=== PATIENT | female | born 1960 ===

== ENCOUNTER 2024-09-06 16:12 | Inpatient (IN) | payer MEDICAID, OTHER ==
[~2024-09-06] VITALS: Ht 165.1 cm; Wt 74.8 kg
[2024-09-06 21:49] LABS: PLATELET COUNT (AUTO) 337 K/uL (150-450); RED BLOOD CELL COUNT(AUTO) 3.02 MIL/uL (4.00-5.20); RED CELL DISTRIBUTION WIDTH 13.6 % (11.5-14.5); WHITE BLOOD COUNT (AUTO) 7.2 K/uL (4.5-11.0)
[2024-09-06 21:55] LABS: CALCIUM, TOTAL 8.1 mg/dL (8.8-10.5); CREATININE 1.68 mg/dL (0.60-1.30); GLOMERULAR FILTR. RATE CALC 31.0 mL/min (>60); GLUCOSE,RANDOM 95.0 mg/dL (70-110); SODIUM SERUM 141.0 mmol/L (136-145); UREA NITROGEN, BLOOD 39.0 mg/dL (7-18)
[2024-09-06 22:38] LABS: COVID AG,FIA SOURCE NASAL SWAB
[2024-09-06 22:41] LABS: APPEARANCE,URINE CLEAR (CLEAR); GLUCOSE, URINE (UA) 300-500 mg/dL (NEGATIVE); LEUKOCYTE ESTERASE ,URINE NEGATIVE (NEGATIVE); NITRATE,URINE NEGATIVE (NEGATIVE); OCCULT BLOOD,URINE NEGATIVE (NEGATIVE); PH,URINE DRUG SCREEN 6.5 (5.0-8.0); SPECIFIC GRAVITIY, URINE 1.017 (1.003-1.030)
[2024-09-06 22:49] LABS: ALCOHOL, URINE DRUG SCREEN NEGATIVE (NEGATIVE); AMPHET/METH SCREEN,URINE NEGATIVE (NEGATIVE); BARBITURATE SCREEN, URINE NEGATIVE (NEGATIVE); CANNABINOID SCREEN,URINE NEGATIVE (NEGATIVE); COCAINE SCREEN,URINE NEGATIVE (NEGATIVE); METHADONE SCREEN, URINE NEGATIVE (NEGATIVE)
[2024-09-06 22:51] LABS: SULFOSALICYLIC ACID,URINE 4+ (Negative)
[2024-09-06 22:54] LABS: SQUAMOUS EPITHELIAL CELL,UR Rare /LPF (None Seen)
[2024-09-06 22:56] LABS: SARS-COV2 (COVID) ANTIGEN,FIA Negative (Negative)
[2024-09-07] MEDS ORDERED: ZOLPIDEM TARTRATE 10 MG TABLET PO PRN (04:45)
[2024-09-07] MEDS: PERMETHRIN 5% 60 GM CREAM TP ONE (14:37)
[2024-09-07 17:27] VITALS: BP 135/74; PULSE 90; RESP 18; TEMP 97.8; O2SAT 97
[2024-09-07 20:00] VITALS: BP 128/81; PULSE 88; RESP 19; TEMP 98; O2SAT 98
[2024-09-08] MEDS ORDERED: PNEUMOCOCCAL VACCINE POLYVALENT 0.5 ML SYRINGE [PPSV23] IM. ONE (06:45)
[2024-09-08 09:38] VITALS: BP 142/75; PULSE 93; RESP 18; TEMP 97.5; O2SAT 100
[2024-09-08] MEDS ORDERED: ACETAMINOPHEN 325 MG TABLET PO PRN (09:45)
[2024-09-08] MEDS ORDERED: MAGNESIUM HYDROXIDE SUSPENSION 30 ML UDCUP PO PRN (09:45)
[2024-09-08] MEDS ORDERED: ALBUTEROL SULFATE HFA 90 MCG/PUFF 8 GM INHALER IH PRN (09:45)
[2024-09-08] MEDS ORDERED: LOPERAMIDE HCL 2 MG CAPSULE PO PRN (09:45)
[2024-09-08] MEDS ORDERED: PETROLATUM,WHITE 28 GM JELLY TP PRN (09:45)
[2024-09-08] MEDS ORDERED: BACITRACIN 28 GM OINTMENT TP PRN (09:45)
[2024-09-08] MEDS ORDERED: OMEPRAZOLE 20 MG CAPSULE PO PRN (09:45)
[2024-09-08] MEDS ORDERED: DOCUSATE SODIUM 100 MG CAPSULE PO PRN (09:45)
[2024-09-08] MEDS ORDERED: IBUPROFEN 600 MG TABLET PO PRN (09:45)
[2024-09-08] MEDS ORDERED: MAG HYDROX/ALUMINUM HYD/SIMETH ES 30 ML SUSPENSION UDCUP PO PRN (09:45)
[2024-09-08] MEDS ORDERED: ONDANSETRON 4 MG TABLET PO PRN (09:45)
[2024-09-08] MEDS ORDERED: BENZOCAINE/MENTHOL [CEPACOL] LOZENGE PO PRN (09:45)
[2024-09-08] MEDS: METOPROLOL TARTRATE 25 MG TABLET PO SCH (18:43)
[2024-09-08] MEDS: ATORVASTATIN CALCIUM 20 MG TABLET PO SCH (20:12)
[2024-09-08 21:41] VITALS: BP 145/76; PULSE 90; RESP 18; TEMP 98.1; O2SAT 97
[2024-09-09] MEDS: CALAMINE/ZINC OXIDE 177 ML LOTION TP SCH (09:44)
[2024-09-09] MEDS: ASPIRIN 81 MG DR TABLET PO SCH (09:44)
[2024-09-09] MEDS: MULTIVITAMINS WITH MINERALS, THERAPEUTIC TABLET PO SCH (09:44)
[2024-09-09 09:47] LABS: PLATELET COUNT (AUTO) 309 K/uL (150-450); RED BLOOD CELL COUNT(AUTO) 2.96 MIL/uL (4.00-5.20); RED CELL DISTRIBUTION WIDTH 13.9 % (11.5-14.5); WHITE BLOOD COUNT (AUTO) 13.0 K/uL (4.5-11.0)
[2024-09-09 10:14] LABS: ASPARTATE AMINOTRANSFERASE 23.0 U/L (15-37); CALCIUM, TOTAL 8.2 mg/dL (8.8-10.5); CHOL/HDL RATIO 2.6 (3.9-5.7); CREATININE 1.89 mg/dL (0.60-1.30); GLOMERULAR FILTR. RATE CALC 27.0 mL/min (>60); GLUCOSE,RANDOM 110.0 mg/dL (70-110); LDL CHOL (CALC.) 74.0 mg/dL (0-130); PHOSPHORUS 3.5 mg/dL (2.5-4.9); SODIUM SERUM 147.0 mmol/L (136-145); TOTAL PROTEIN, SERUM 5.2 g/dL (6.4-8.2); UREA NITROGEN, BLOOD 36.0 mg/dL (7-18)
[2024-09-09 10:21] LABS: % IRON SATURATION 18.7 % (22-44); IRON, SERUM 21.0 mcg/dL (50-175)
[2024-09-09 10:59] VITALS: BP 138/84; PULSE 102; RESP 17; TEMP 98.4; O2SAT 96
[2024-09-09 22:34] VITALS: BP 133/70; PULSE 92; RESP 17; TEMP 99; O2SAT 98
[2024-09-10 10:19] VITALS: BP 141/82; PULSE 100; RESP 18; TEMP 97.6; O2SAT 97
[2024-09-10 21:16] VITALS: BP 122/68; PULSE 79; RESP 18; TEMP 97.6; O2SAT 100
[2024-09-11 10:29] VITALS: BP 126/72; PULSE 87; RESP 18; TEMP 97.7; O2SAT 98
[2024-09-12] MEDS ORDERED: LEVO25TA9 PO (08:43)
[2024-09-12 11:12] VITALS: RESP 16
[2024-09-12 13:39] VITALS: BP 132/72; PULSE 98; RESP 20; TEMP 98.4; O2SAT 100
[2024-09-12 21:24] VITALS: BP 125/62; PULSE 76; RESP 19; TEMP 97.9; O2SAT 98
[2024-09-13] MEDS: LEVOTHYROXINE SODIUM 25 MCG TABLET PO SCH (07:10)
[2024-09-13 08:55] LABS: PLATELET COUNT (AUTO) 425 K/uL (150-450); RED BLOOD CELL COUNT(AUTO) 3.16 MIL/uL (4.00-5.20); RED CELL DISTRIBUTION WIDTH 14.2 % (11.5-14.5); WHITE BLOOD COUNT (AUTO) 10.1 K/uL (4.5-11.0)
[2024-09-13 09:18] LABS: CALCIUM, TOTAL 7.6 mg/dL (8.8-10.5); CREATININE 1.61 mg/dL (0.60-1.30); GLOMERULAR FILTR. RATE CALC 32.0 mL/min (>60); GLUCOSE,RANDOM 104.0 mg/dL (70-110); SODIUM SERUM 143.0 mmol/L (136-145); UREA NITROGEN, BLOOD 35.0 mg/dL (7-18)
[2024-09-13 10:27] LABS: BAND NEUTROPHILS % (MANUAL) 1 % (0-5); EOSINOPHILS % (MANUAL) 6 % (1-6); LYMPHOCYTES % (MANUAL) 20 % (22-44); MONOCYTES % (MANUAL) 1 % (2-9); RBC MORPHOLOGY COMMENT NORMAL RBC MORPH; SEGMENTED NEUTROPHILS % 72 % (40-70)
[2024-09-13 11:25] VITALS: BP 133/68; PULSE 82; RESP 16; TEMP 97.7; O2SAT 99
[2024-09-13 20:30] VITALS: BP 120/71; PULSE 81; RESP 18; TEMP 98.2; O2SAT 98
[2024-09-14] MEDS ORDERED: CALAMINE/ZINC OXIDE 177 ML LOTION TP PRN (00:45)
[2024-09-14 08:35] VITALS: BP 123/81; PULSE 85; RESP 17; TEMP 97.5; O2SAT 97
[2024-09-15] MEDS ORDERED: PERMETHRIN 5% 60 GM CREAM TP ONE (06:45)
== END 2024-09-14 19:00 | DRG 754 ==
LOC: EMS 16:12 → 3EI 09-07 17:01
PROVIDERS: ADMIT Psychiatry & Neurology Psychiatry; ATTEND Psychiatry & Neurology Psychiatry
DX: F32.9 Major depressive disorder, single episode, unspecified (principal); I69.351 Hemiplegia and hemiparesis following cerebral infarction affecting right dominant side; I12.9 Hypertensive chronic kidney disease with stage 1 through stage 4 chronic kidney disease, or unspecified chronic kidney disease; N18.30 Chronic kidney disease, stage 3 unspecified; R91.8 Other nonspecific abnormal finding of lung field; K21.9 Gastro-esophageal reflux disease without esophagitis; Z20.822 Contact with and (suspected) exposure to COVID-19; M54.2 Cervicalgia; G40.909 Epilepsy, unspecified, not intractable, without status epilepticus; F41.9 Anxiety disorder, unspecified; R32 Unspecified urinary incontinence; G47.00 Insomnia, unspecified; Z91.148 Patient's other noncompliance with medication regimen for other reason
CPT/HCPCS: 70450; 71250; 72125; 80048; 80053; 80061; 80307; 81001; 81002; 83036; 83540; 83550; 83735; 84100; 84443; 85025; 87081; 92610; 97163; 97167; 97530; 97535; 99285; G0480